=== PATIENT | female | born 1985 | race Caucasian/White ===

== ENCOUNTER → 2016-04-19 | Outpatient (CLI) | payer BC ==
--- NOTE | 2016-04-19 14:06 | US ---
EXAMINATION TYPE: US OB <= 14 wk fetus DATE OF EXAM: 04/19/2016 1:48 PM COMPARISON: NONE CLINICAL HISTORY: Z36 CONFIRM DATES. EXAM PERFORMED: OBTA EXAM MEASUREMENTS: GESTATIONAL AGE / DATING Physician Established: (10 weeks/3 days) EDC: 11/12/2016 Dates by LMP: (10 weeks/3 days) EDC: 11/12/2016 Dates by First Scan: DATACAP DEVELOPER Dates by Current Scan for: (10 weeks/6 days) EDC: 11/09/2016 MATERNAL ANATOMY Uterus: 11.2 x 8.6 x 5.9cm Right Ovary: 2.6 x 1.9 x 1.8cm Left Ovary: not seen due to bowel gas and enlarging UT Post CDS / Adnexa: wnl Presence of free fluid: no Presence of corpus luteal cyst: no Presence of subchorionic bleed: no GESTATION / SURVEY CRL: 3.9cm (10 weeks/6 days) MSD: wnl Yolk Sac (normal less than 6mm): not seen Heart Rate: 174 bpm Rhythm: Normal IUP: Viable IUP Nuchal Translucency 10-14wks (normal less than 3mm): 1mm Date of LMP: 02/06/2016 Beta HcG (if available): not available TECHNOLOGIST IMPRESSION: Viable 10w6d IUP seen and appears wnl IMPRESSION: Single viable intrauterine corresponding to ultrasound age 10 weeks 6 days with estimated d ate of delivery October by today's exam
[2016-04-19 14:40] LABS: CH 30.5; CHCM 34.7; HCT 39.9 % (34.0-46.0); HDW 2.29; HGB 13.6 gm/dL (11.4-16.0); MCH 30.2 pg (25.0-35.0); MCHC 34.2 g/dL (31.0-37.0); MCV 88.3 fL (80.0-100.0); Mean Platelet Volume 7.5; RBC 4.51 m/uL (3.80-5.40); RDW 12.6 % (11.5-15.5); WBC 12.5 k/uL (3.8-10.6)
[2016-04-19 14:48] LABS: Glucose 80 mg/dL (74-99); Non-African American GFR(MDRD) >60 (>60 ml/min/1.73 sqM)
[2016-04-19 15:18] LABS: Hepatitis B Surface Ag Index 0.08
[2016-04-21 05:01] LABS: Toxoplasma Antibody (IgG) <3.0 IU/mL (<7.2)
[2016-04-21 08:08] LABS: HIV-1/HIV-2 Ab Screen NONREAC (NON REAC)
== END ==
LOC: RADUSWWP 13:31
PROVIDERS: ATTEND Obstetrics & Gynecology
DX: Z36 Encounter for antenatal screening of mother (principal); O26.811 Pregnancy related exhaustion and fatigue, first trimester; Z3A.10 10 weeks gestation of pregnancy
CPT/HCPCS: 76801; 76813; 82565; 82947; 85027; 86762; 86777; 86778; 86780; 86850; 86900; 86901; 87340; 87389

== ENCOUNTER → 2016-08-01 | Outpatient (CLI) | payer BC ==
[2016-08-01 09:27] LABS: CHCM 34.2; HCT 33.1 % (34.0-46.0); HDW 2.47; HGB 11.4 gm/dL (11.4-16.0); MCH 32.2 pg (25.0-35.0); MCHC 34.3 g/dL (31.0-37.0); MCV 93.9 fL (80.0-100.0); RBC 3.53 m/uL (3.80-5.40); RDW 13.3 % (11.5-15.5)
== END | disposition home or self-care (01) ==
LOC: LABWHC1 08:06
PROVIDERS: ATTEND Obstetrics & Gynecology
DX: Z34.02 Encounter for supervision of normal first pregnancy, second trimester (principal); Z3A.00 Weeks of gestation of pregnancy not specified
CPT/HCPCS: 36415; 82950; 85027

== ENCOUNTER 2016-11-09 11:43 | Inpatient (IN) | payer BC ==
[2016-11-09] MEDS ORDERED: OXYTOCIN 10 UNIT/ML 1 ML VIAL IM PRN (12:29)
[2016-11-09] MEDS ORDERED: CARBOPROST TROMETHAMINE 250 MCG/ML 1 ML AMP IM PRN (12:29)
[2016-11-09] MEDS ORDERED: METHYLERGONOVINE 0.2 MG/ML 1 ML AMP IM PRN (12:29)
[2016-11-09] MEDS ORDERED: LIDOCAINE 1% (PF) 10 MG/ML (30 ML SDV) SQ PRN (12:29)
[2016-11-09] MEDS ORDERED: TERBUTALINE 1 MG/ML VIAL SQ PRN (12:29)
[2016-11-09] MEDS ORDERED: OXYTOCIN 20 UNITS/1000 ML NS 1,000 ML IV SCH ×2 (12:30→23:15)
[2016-11-09] MEDS ORDERED: AMPICILLIN 2,000 MG in SODIUM CHLORIDE 0.9% 100 ML IVPB STA (12:32)
--- NOTE | 2016-11-09 12:40 | P.HPOB ---
History of Present Illness H&P Date: 11/09/16 Chief Complaint: Leaking of fluid since 1:30. This patient is a 30-year-old 1 para 0 female estimated date of confinement 11/12/2016 estimated gestational age 39-4/7 weeks who presents to labor and delivery with complaints of leaking of fluid since about 1:30 this morning. Patient is uncertain as to why she did not call earlier with this complaint however is found to be grossly ruptured with light meconium-stained fluid. She is not having any appreciable contractions. care is per Dr. Oakes and appears to be uncomplicated with the exception of significant tobacco use. Review of Systems Constitutional: Denies chills, Denies fever Ears, nose, mouth and throat: Denies headache, Denies sore throat Gastrointestinal: Reports heartburn Genitourinary: Reports Menstruation: Reports amenorrhea Past Medical History Additional Past Medical History / Comment(s): see Dr Tomlinson H&P, hx migraines; patient has a history of neurogenic syncope. History of Any Multi-Drug Resistant Organisms: None Reported Past Surgical History: No Surgical Hx Reported Past Anesthesia/Blood Transfusion Reactions: No Reported Reaction Past Psychological History: No Psychological Hx Reported Smoking Status: Current every day smoker Past Alcohol Use History: None Reported Past Drug Use History: None Reported - Past Family History Mother Family Medical History: No Reported History Medications and Allergies Home Medications Medication Instructions Recorded Confirmed Type No Known Home Medications [No 11/09/16 11/09/16 History Known Home Medications] Allergies Allergy/AdvReac Type Severity Reaction Status Date / Time No Known Allergies Allergy Verified 11/09/16 11:53 Exam - Vital Signs Vital signs: Intake and Output 11/08/16 11/09/16 11/09/16 22:59 06:59 14:59 Other: Weight 73.936 kg Patient Weight 11/10/16 06:59 Weight 73.936 kg - OBG Physical Exam Abdomen: bowel sounds normal, no diffuse tenderness, no bruit present, no guarding noted, no hepatomegaly, no splenomegaly, no mass Vulva: both: normal Cervix: no lesion (Cervix is 1-2 cm dilated and 80% effaced with gross rupture membranes and mild meconium-stained fluid.), no discharge Uterus: enlarged (Fundal height is consistent with a term .) Results blood work shows she is A+, rubella immune, RPR nonreactive, hepatitis B negative, HIV nonreactive, ultrasounds have been normal, Glucola appears normal as well. Assessment and Plan (1) PROM (premature rupture of membranes) Narrative/Plan: This is a pleasant 30-year-old 1 para 0 female 39-4/7 weeks gestation who presents to labor and delivery with prolonged rupture membranes since 1:30 this morning. Patient also has mild meconium-stained fluid. Due to the prolonged rupture I'm going to administer IV antibiotics and Pitocin induction of labor at this time. Patient does understand that most likely the infant will need to have blood work to rule out sepsis. Status: Acute (2) Third trimester Status: Acute
[2016-11-09] MEDS: LACTATED RINGERS 1,000 ML IV SCH (13:03)
[2016-11-09 13:16] LABS: Basophils # (A) 0.1 k/uL (0-0.2); Basophils % (A) 0 %; CH 29.6; CHCM 34.9; Eosinophils # (A) 0.1 k/uL (0-0.7); Eosinophils % (A) 1 %; HDW 3.05; HGB 13.4 gm/dL (11.4-16.0); Luc % (Auto) 2; Lymphocytes # (A) 1.9 k/uL (1.0-4.8); Lymphocytes % (A) 16 %; MCH 30.1 pg (25.0-35.0); MCHC 35.3 g/dL (31.0-37.0); MCV 85.2 fL (80.0-100.0); Monocytes # (A) 0.4 k/uL (0-1.0); Monocytes % (A) 4 %; Neutrophils # (A) 9.6 k/uL (1.3-7.7); Neutrophils % (A) 79 %; RBC 4.47 m/uL (3.80-5.40); WBC 12.3 k/uL (3.8-10.6); WBC (Perox) 12.49
[2016-11-09 13:54] VITALS: BMI 28.8
[2016-11-09] MEDS: AMPICILLIN 1,000 MG in SODIUM CHLORIDE 0.9% 50 ML IVPB SCH (17:44)
[2016-11-09] MEDS ORDERED: ceFAZolin 2 GM in SODIUM CHLORIDE 0.9% 100 ML IVPB ONE (22:00)
[2016-11-09] MEDS ORDERED: CITRIC ACID-SODIUM CITRATE 15 ML CUP PO ONE (22:00)
--- NOTE | 2016-11-09 22:08 | P.PN ---
Progress Note - Text Patient has been ruptured for ~22 hours. Cervix is 1-2 cm without any exchange architect the last 9 hrs despite 20mu of Pitocin. I discussed continued trial of labor versus cesaren section. She and her wish to proceed with a C/S. All of her questions were answered and consent obtained.
[2016-11-09] MEDS ORDERED: MORPHINE SULFATE (PF) 0.3 MG/0.3 ML SYR ONE (22:26)
[2016-11-09] MEDS ORDERED: ONDANSETRON 4 MG/2 ML VIAL ONE (22:26)
[2016-11-09] MEDS ORDERED: KETOROLAC 30 MG/ML 1 ML VIAL ONE (22:26)
[2016-11-09] MEDS ORDERED: NALBUPHINE 10 MG/ML AMPUL ONE (22:26)
[2016-11-09] MEDS ORDERED: NALOXONE 0.4 MG/ML 1 ML VIAL IV PRN (23:09)
[2016-11-09] MEDS ORDERED: diphenhydrAMINE 25 MG CAP PO PRN (23:09)
[2016-11-09] MEDS ORDERED: SIMETHICONE 80 MG CHEWABLE PO PRN (23:09)
[2016-11-09] MEDS ORDERED: ZOLPIDEM 5 MG TAB PO PRN (23:09)
[2016-11-09] MEDS ORDERED: diphenhydrAMINE 50 MG/ML 1 ML VIAL IVP PRN (23:09)
[2016-11-09] MEDS ORDERED: METOCLOPRAMIDE 5 MG/ML 2 ML VIAL IVP PRN (23:09)
[2016-11-09] MEDS ORDERED: Acetaminophen-Codeine 300-30mg TAB PO PRN (23:09)
[2016-11-09] MEDS ORDERED: ACETAMINOPHEN TAB 325 MG TAB PO PRN (23:09)
[2016-11-09] MEDS ORDERED: ONDANSETRON 4 MG/2 ML VIAL IVP PRN (23:09)
--- NOTE | 2016-11-09 23:24 | P.OP ---
Date of Procedure: 11/09/16 Preoperative Diagnosis: #1: 39-4/7 weeks . #2: Premature rupture membranes, prolonged. #3: Failed induction of labor Postoperative Diagnosis: Same Procedure(s) Performed: Primary low transverse section. Anesthesia: spinal Surgeon: Peng Ragsdale Heat Seal Operator #1: Sindi Mcclure Estimated Blood Loss (ml): 600 Pathology: other (Placenta) Condition: stable Disposition: floor Indications for Procedure: Please see dictated H&P for intimate details of this patient's admission. In brief summary this is a 31-year-old 1 para 0 female estimated gestational age 39-4/7 weeks gestation who presented to labor and delivery at approximately 12:30 today after being ruptured for approximately 12 hours. Patient was noted to have mild meconium-stained fluid. CBC was normal and she was afebrile. Cervix is 1-2 cm dilated and she had Pitocin induction of labor and antibiotics. Patient did not progress despite being on 20 milliunits of Pitocin and laboring for approximately 10 hours. At this time I did discuss options with the patient including continued induction with close observation versus delivery by section and she requests to proceed with section. Patient does understand the surgery and risks including risks of infection, bleeding, possible injury bowel, bladder, vessels, and other organs. She understands risk of DVT and pulmonary embolism. Operative Findings: This was a vigorous viable male Apgars are 8 and 9 delivery time is 2043 hours. Uterus, tubes, and ovaries appear normal for term gestation. Description of Procedure: This patient has a Hansen catheter placed to straight drain. She subsequently taken to the operating room where she sat up and spinal anesthetic is administered without incident. A vaginal prep was done at this time as well. She has abdominal prep and drape as well. With an adequate level of anesthesia scalpels taken Pfannenstiel skin incision is made. A second scalpel is taken on the fascia the fascia scored with a knife. Fascial incision extended bilaterally using the Diaz scissors. Fascia is then dissected sharply off the rectus muscles. Rectus muscles are and the peritoneum identified and entered sharply. Peritoneal incision extended superior and inferior without difficulty. Bladder blade is then placed. Bladder peritoneum was then taken sharply off the lower uterine segment. A second scalpels and taken and a low transverse uterine incision is made. Using a hemostat I gently into the uterine cavity is loss of light meconium-stained fluid. The 's head is then guided through the incision gently and with fundal pressure delivered. Mouth and nares are bulb suctioned. There is no evidence of nuchal cord. Then have delivery anterior and posterior shoulder and rest this 's body. This is a vigorous viable male Apgars are 8 and 9 delivery time was 2243 hrs. After delivery of the infant the umbilical cords doubly clamped and cut appears to be trivascular. The placenta is then manually extracted intact. Uterus is then externalized and the edges demarcated with Chicas clamps. I then closed the uterine incision using 0 Vicryl running locked fashion 2 layers. Excellent hemostasis is noted. Bladder peritoneum was then reapproximated using a 3-0 Vicryl. Excess fluid is removed from the abdomen and pelvis. Uterus placed back into the abdomen. The parietal peritoneum was then identified and closed using 0 Vicryl running fashion. Rectus muscles reapproximated in 0 Vicryl interrupted fashion. Fascia is then closed using 0 PDS. Fascial incision is intact and hemostatic. Subcutaneous tissues and closed using a 3-0 Vicryl. Skin is and closed using smita. All counts are correct 3. There are no complications. and mother stable in the birthing room.
[2016-11-10] MEDS: KETOROLAC 30 MG/ML 1 ML VIAL IVP PRN ×3 (05:46→22:29)
[2016-11-10] MEDS: ceFAZolin 2 GM in SODIUM CHLORIDE 0.9% 100 ML IVPB SCH ×2 (05:46→13:46)
[2016-11-10] MEDS: SENNOSIDES-DOCUSATE SODIUM 1 EACH TAB PO SCH ×2 (07:26→20:00)
[2016-11-10] MEDS: LACTATED RINGERS 1,000 ML IV SCH ×3 (07:26→08:28)
--- NOTE | 2016-11-10 07:32 | P.PNOBGPC ---
Subjective - Subjective Principal diagnosis: S/P 1*LTCS POD #1 Interval history: Pt seen and examined. Denies N/V, F/C, CP, SOB, calf pain, no flatus yet. tolerating clears. Patient reports: Reports appetite normal, Reports voiding normally, Reports pain well controlled, Reports ambulating normally Crowley: doing well Objective - Vital Signs Latest vital signs: Vital Signs Temp Pulse Resp BP Pulse Ox 11/10/16 04:00 97.7 F 57 L 18 120/70 98 11/10/16 01:08 97.0 F L 60 16 105/59 96 11/10/16 00:36 96.7 F L 62 18 95 11/10/16 00:08 96.6 F L 73 18 95/64 97 11/09/16 23:53 73 18 105/61 97 11/09/16 23:38 97.1 F L 74 18 106/62 97 11/09/16 23:23 73 18 113/66 98 11/09/16 23:08 97.1 F L 95 18 114/89 97 11/09/16 12:58 97.8 F 90 16 116/70 100 Intake and Output 11/09/16 11/10/16 11/10/16 22:59 06:59 14:59 Intake Total 1650 Output Total 250 Balance 1400 Intake: Intake, IV Titration 1050 Amount Lactated Ringers 1,000 ml 1000 @ 125 mls/hr IV .Q8H KYLEE Rx#:[id number] Oxytocin 20 Units/1000 ml 50 Ns 1,000 ml @ Per Protocol IV .Q0M KYLEE Rx#: [id number] Oral 600 Output: Urine 250 Uretheral (Hansen) 250 Other: Voiding Method Indwelling Catheter - Exam Lungs: bilateral: normal Chest: Normal S1, Normal S2 Extremities: Present: normal Abdomen: Present: normal appearance, soft. Absent: distention, tenderness Incision: Present: normal, dry, intact Uterus: Present: normal, firm - Labs Labs: Abnormal Lab Results - Last 24 Hours (Table) 11/09/16 Range/Units 12:45 WBC 12.3 H (3.8-10.6) k/uL Neutrophils # 9.6 H (1.3-7.7) k/uL Assessment and Plan (1) Status post primary low transverse section Narrative/Plan: 1. increase ambulation 2. regular diet with flatus 3. continue pain control Current Visit: Yes Status: Acute Code(s): Z98.891 - HISTORY OF UTERINE SCAR FROM PREVIOUS SURGERY SNOMED Code(s): 641866688
[2016-11-10 08:08] LABS: Basophils % (A) 0 %; Eosinophils # (A) 0.1 k/uL (0-0.7); Eosinophils % (A) 1 %; HCT 33.9 % (34.0-46.0); HDW 3.02; HGB 11.8 gm/dL (11.4-16.0); Luc # (Auto) 0.21; Luc % (Auto) 2; Lymphocytes # (A) 1.8 k/uL (1.0-4.8); Lymphocytes % (A) 14 %; MCH 29.9 pg (25.0-35.0); MCHC 34.6 g/dL (31.0-37.0); MCV 86.3 fL (80.0-100.0); Mean Platelet Volume 8.4; Monocytes # (A) 0.6 k/uL (0-1.0); Monocytes % (A) 4 %; Neutrophils # (A) 10.5 k/uL (1.3-7.7); Neutrophils % (A) 80 %; RBC 3.93 m/uL (3.80-5.40); WBC 13.1 k/uL (3.8-10.6); WBC (Perox) 13.98
--- NOTE | 2016-11-10 12:06 | P.PN ---
Progress Note - Text Date: 11/10/2016 Time: 706 The patient is status post section Vital signs stable VAS:0-10 Patient has no complaints of pain. The patient incurred some minimal itching yesterday, this itching is now subsiding. Pain meds to be managed by service.
[2016-11-10] MEDS: AMPICILLIN 1,000 MG in SODIUM CHLORIDE 0.9% 50 ML IVPB SCH (14:02)
[2016-11-11] MEDS: IBUPROFEN 600 MG TAB PO PRN ×2 (06:23→16:29)
[2016-11-11 07:52] VITALS: RESP 16
[2016-11-11] MEDS: SENNOSIDES-DOCUSATE SODIUM 1 EACH TAB PO SCH ×2 (07:53→20:45)
--- NOTE | 2016-11-11 08:25 | P.DS ---
Providers Date of admission: 11/09/16 12:19 Expected date of discharge: 11/11/16 Attending physician: Tasha Oakes Primary care physician: Tasha Oakes - Discharge Diagnosis(es) (1) Status post primary low transverse section Current Visit: Yes Status: Acute Hospital Course: Patient presented with spontaneous rupture of membranes. She did have Pitocin augmentation. She underwent a primary low transverse for failure to progress. Her post operative course was uncomplicated. She's passing flatus, tolerating regular diet, ambulating and voiding without difficulty. She'll be discharged home postoperative day #2 in stable condition to follow-up with me in one week. Plan - Discharge Summary New Discharge Prescriptions: New Acetaminophen-Codeine 300-30mg [Tylenol #3] 2 tab PO Q6H PRN #30 tablet PRN Reason: Pain Ibuprofen [Motrin] 600 mg PO Q6HR PRN #30 tab PRN Reason: Mild Pain Or Fever >= 100.5 Discharge Medication List Acetaminophen-Codeine 300-30mg [Tylenol #3] 2 tab PO Q6H PRN #30 tablet [Rx] Ibuprofen [Motrin] 600 mg PO Q6HR PRN #30 tab 11/11/16 [Rx] Follow up Appointment(s)/Referral(s): Tasha Oakes DO [Primary Care Provider] - 6 Weeks Discharge Disposition: HOME SELF-CARE
[2016-11-12] MEDS: Acetaminophen-Codeine 300-30mg TAB PO PRN ×2 (00:31→06:10)
[2016-11-12 09:09] VITALS: BP 118/70; PULSE 73; TEMP 98.5
[2016-11-12] MEDS: SENNOSIDES-DOCUSATE SODIUM 1 EACH TAB PO SCH (09:10)
== END 2016-11-12 10:10 | disposition home or self-care (01) | DRG 766 ==
LOC: FBPOP 11:43 → 4FBP 12:19
PROVIDERS: ADMIT Obstetrics & Gynecology; ATTEND Obstetrics & Gynecology
PROC: 3E033VJ Introduction of Other Hormone into Peripheral Vein, Percutaneous Approach (ICD-10-PCS; 2016-11-09)
PROC: 10D00Z1 Extraction of Products of Conception, Low, Open Approach (ICD-10-PCS; principal; 2016-11-09 22:15)
DX: O42.02 Full-term premature rupture of membranes, onset of labor within 24 hours of rupture (principal); O61.9 Failed induction of labor, unspecified; F17.200 Nicotine dependence, unspecified, uncomplicated; Z37.0 Single live birth; O77.0 Labor and delivery complicated by meconium in amniotic fluid; O62.2 Other uterine inertia; O99.334 Smoking (tobacco) complicating childbirth; Z3A.39 39 weeks gestation of pregnancy; G43.909 Migraine, unspecified, not intractable, without status migrainosus
CPT/HCPCS: 84112; 85025; 86850; 86900; 86901; 88307; 99213